=== PATIENT | male | born 1945 | race Caucasian/White ===

== ENCOUNTER 2016-09-24 10:45 | Day surgery (SDC) | payer OTHER, MEDICARE ==
[~2016-09-24] VITALS: Ht 175.3 cm; Wt 81.6 kg
[~2016-09-24 10:45] MED LIST: AMBIZINE25 MG PO; AMOX TR-K CLV1 EAC3 PO; ASPIR-LOW81 MG PO; FLORANEX CHE1 TABLET PO; FLUDROCORTISON0.1 M1 PO; LOPERAMIDE2 MG PO; NITROSTAT0.4 MG SL; NORCO 5/3251 TABLET PO; NOVOLOG PE100 UNITS/ SC; PHENERGAN25 MG/ML IM; PLAVIX75 MG PO; PROAMATINE5 MG PO; PROTONIX40 MG PO; TYLENOL REGULA325 MG PO; ZOLOFT25 MG PO
[2016-09-24 11:42] VITALS: BP 192/88
[2016-09-24 11:44] LABS: POINT-OF-CARE METER ID UU14174212
[2016-09-24 14:56] LABS: POINT-OF-CARE METER ID UU13113675
[2016-09-24 16:10] VITALS: BP 141/76
[2016-09-24 16:59] VITALS: BP 143/77
== END 2016-09-24 17:10 | disposition home or self-care (01) ==
LOC: SDC 10:45
PROVIDERS: Ophthalmology
DX: E11.3531 Type 2 diabetes mellitus with proliferative diabetic retinopathy with traction retinal detachment not involving the macula, right eye (principal); E11.22 Type 2 diabetes mellitus with diabetic chronic kidney disease; I25.10 Atherosclerotic heart disease of native coronary artery without angina pectoris; I13.0 Hypertensive heart and chronic kidney disease with heart failure and stage 1 through stage 4 chronic kidney disease, or unspecified chronic kidney disease; N18.3 Chronic kidney disease, stage 3 (moderate); I50.22 Chronic systolic (congestive) heart failure; Z95.1 Presence of aortocoronary bypass graft; I69.354 Hemiplegia and hemiparesis following cerebral infarction affecting left non-dominant side; K21.9 Gastro-esophageal reflux disease without esophagitis; Z79.84 Long term (current) use of oral hypoglycemic drugs; Z79.02 Long term (current) use of antithrombotics/antiplatelets; Z88.2 Allergy status to sulfonamides; I25.2 Old myocardial infarction; Z95.5 Presence of coronary angioplasty implant and graft; Z95.810 Presence of automatic (implantable) cardiac defibrillator
CPT/HCPCS: 82948; 84132; J0131; J0330; J0690; J1170; J2405; J3010; J3300

== ENCOUNTER 2017-02-19 14:32 | Inpatient (IN) | payer OTHER, MEDICARE ==
[~2017-02-19] VITALS: Ht 175.3 cm; Wt 85.1 kg
[2017-02-19] VITALS (7 sets, daily range): BP systolic 147–170; BP diastolic 73–86
[2017-02-19 14:53] LABS: BASOPHIL COUNT 0.1 K/uL (0-0.1); EOSINOPHIL (%) 1.1 % (0-5); EOSINOPHIL COUNT 0.1 K/uL (0-0.3); HEMATOCRIT 22.5 % (38.0-50.0); IMMATURE GRANULOCYTE (%) 1.1 % (0.0-0.7); IMMATURE GRANULOCYTE COUNT 0.1 K/uL; INSTRUMENT ABS NEUTROPHIL CT 8.1 K/uL; LYMPHOCYTE COUNT 1.4 K/uL (1.0-2.8); MCH 19.5 PG (29.0-34.0); MCHC 27.1 G/DL (30.0-36.0); MCV 71.9 FL (86-99); MEAN PLAT.VOLUME 10.8 uM^3 (9.0-12.4); MONOCYTE (%) 7.4 % (3-12); MONOCYTE COUNT 0.8 K/uL (0-0.8); NEUTROPHIL (%) 76.5 % (45-76); NEUTROPHIL COUNT 8.1 K/uL (1.8-6.4); PLATELET COUNT 298 K/uL (156-360); RBC DIS.WIDTH-CV 16.8 % (11.8-14.6); RBC DIS.WIDTH-SD 43.8 % (39-53); RED BLOOD COUNT 3.13 M/uL (4.00-5.50); WHITE BLOOD COUNT 10.6 K/uL (4.1-10.2)
[2017-02-19 14:59] LABS: AMYLASE 77 IU/L (1-118); CHLORIDE 111 mEq/L (99-109); POTASSIUM 5.7 mEq/L (3.7-5.4); SODIUM 140 mEq/L (136-147)
[2017-02-19 15:01] LABS: GLUCOSE 208 mg/dL (70-99)
[2017-02-19 15:02] LABS: ANION GAP 8 MEQ/L (2-14)
[2017-02-19 15:04] LABS: SERUM ETHYL ALCOHOL < 10 mg/dL
[2017-02-19 15:05] LABS: GFR ESTIMATE (CALCULATED) 30 mL/min/; UREA NITROGEN (BUN) 28 mg/dL (9-23)
[2017-02-19 15:08] LABS: LIPASE 30 U/L (1.0-51.0)
[2017-02-19 16:23] LABS: EOSINOPHIL (%) 0.4 % (0-5); EOSINOPHIL COUNT 0.1 K/uL (0-0.3); HEMATOCRIT 22.3 % (38.0-50.0); IMMATURE GRANULOCYTE (%) 0.9 % (0.0-0.7); IMMATURE GRANULOCYTE COUNT 0.1 K/uL; INSTRUMENT ABS NEUTROPHIL CT 11.5 K/uL; LYMPHOCYTE COUNT 1.1 K/uL (1.0-2.8); MCH 19.2 PG (29.0-34.0); MCHC 26.9 G/DL (30.0-36.0); MCV 71.5 FL (86-99); MEAN PLAT.VOLUME 10.5 uM^3 (9.0-12.4); MONOCYTE COUNT 0.8 K/uL (0-0.8); NEUTROPHIL (%) 84.4 % (45-76); NEUTROPHIL COUNT 11.5 K/uL (1.8-6.4); PLATELET COUNT 290 K/uL (156-360); RBC DIS.WIDTH-SD 43.8 % (39-53); RED BLOOD COUNT 3.12 M/uL (4.00-5.50); WHITE BLOOD COUNT 13.6 K/uL (4.1-10.2)
[2017-02-19 18:11] LABS: TROP-I INTERPRETATION NEGATIVE; TROPONIN-I 0.03 ng/mL (0.0-0.30)
[2017-02-19] MEDS ORDERED: ATORVASTATIN CA10 MG PO (18:26)
[2017-02-19] MEDS ORDERED: SERTRALINE HCL50 MG PO (18:26)
[2017-02-19] MEDS ORDERED: JANUVIA25 M1 PO (18:27)
[2017-02-19] MEDS ORDERED: METOPROLOL SUCC50 MG PO (18:27)
[2017-02-19] MEDS ORDERED: GLIPIZIDE XL10 MG PO (18:29)
[2017-02-19] MEDS ORDERED: FUROSEMIDE40 MG PO (18:30)
[2017-02-19] MEDS ORDERED: MESTINON60 MG PO (18:32)
[2017-02-19] MEDS ORDERED: ALDACTONE25 MG PO (18:33)
[2017-02-19] MEDS ORDERED: FERROCITE324 MG PO (18:34)
[2017-02-19 19:01] LABS: ADD MIUA? YES; BILIRUBIN NEGATIVE; BLOOD SMALL; COLOR YELLOW ((YELLOW)); GLUCOSE (STRIP) 150; KETONES NEGATIVE; LEUKOCYTES NEGATIVE; NITRITE NEGATIVE; PROTEIN (STRIP) 100; UROBILINOGEN 0.2 MG/DL (0.2-1.0)
[2017-02-19 19:09] LABS: AMPHETAMINE NEGATIVE (500 ng/mL); BACTERIA NONE SEEN /HPF; BARBITURATES NEGATIVE (200 ng/mL); BENZODIAZEPINES NEGATIVE (150 ng/mL); COCAINE NEGATIVE (150 ng/mL); EPITHELIAL CELLS NONE SEEN /HPF; GRANULAR CASTS 0-5 /LPF; HYALINE CASTS 0-5 /LPF; INTERNAL CONTROLS VALID? YES; METHADONE NEGATIVE (200 ng/mL); METHAMPHETAMINE NEGATIVE (500 ng/mL); MUCUS NONE SEEN /LPF; OPIATES (MORPHINE) PRESUMPTIVE POSITIVE (100 ng/mL); OXYCODONE NEGATIVE (100 ng/mL); PHENCYCLIDINE NEGATIVE (25 ng/mL); PROPOXYPHENE NEGATIVE (300 ng/mL); RED BLOOD CELLS 0-5 /HPF (0-5); THC CANNABINOIDS NEGATIVE (50 ng/mL); TRICYCLIC ANTIDEPRESSANTS NEGATIVE (300 ng/mL); UCUL ADDED? NO; WHITE BLOOD CELLS 0-5 /HPF (0-5)
[2017-02-19 19:27] LABS: ADD MEDTOX COMMENT Y
[2017-02-20] VITALS (8 sets, daily range): BP systolic 129–161; BP diastolic 59–77
[2017-02-20 05:54] LABS: HEMATOCRIT 26.1 % (38.0-50.0); MCH 21.3 PG (29.0-34.0); MCHC 28.4 G/DL (30.0-36.0); MEAN PLAT.VOLUME 10.9 uM^3 (9.0-12.4); PLATELET COUNT 259 K/uL (156-360); RBC DIS.WIDTH-CV 17.2 % (11.8-14.6); RBC DIS.WIDTH-SD 46.5 % (39-53); RED BLOOD COUNT 3.48 M/uL (4.00-5.50); WHITE BLOOD COUNT 13.8 K/uL (4.1-10.2)
[2017-02-20 06:17] LABS: ALKALINE PHOSPHATASE 80 IU/L (3-129); ANION GAP 8 MEQ/L (2-14); CHLORIDE 110 MEQ/L (99-109); GFR ESTIMATE (CALCULATED) 37 mL/min/; SAMPLE HEMOLYSIS CHECK 0; SAMPLE ICTERIC CHECK 0; SAMPLE LIPEMIA CHECK 0; SODIUM 142 MEQ/L (136-147); TOTAL BILIRUBIN 0.7 MG/DL (0.0-1.0); UREA NITROGEN (BUN) 27 mg/dL (9-23)
[2017-02-20 06:36] LABS: GLUCOSE 91 mg/dL (70-99)
[2017-02-20 07:04] LABS: POINT-OF-CARE METER ID UU14117124
[2017-02-20 11:49] LABS: POINT-OF-CARE METER ID UU14117124
[2017-02-20 15:28] LABS: FERRITIN 12 NG/ML (22-322)
[2017-02-20 16:23] LABS: POINT-OF-CARE METER ID UU14117124
[2017-02-20 21:09] LABS: HEMATOCRIT 25.4 % (38.0-50.0); MCV 75.4 FL (86-99)
[2017-02-20 22:35] LABS: POINT-OF-CARE METER ID UU14208753
[2017-02-21] VITALS (8 sets, daily range): BP systolic 145–178; BP diastolic 71–85
[2017-02-21 06:51] LABS: POINT-OF-CARE METER ID UU14208753
[2017-02-21 07:57] LABS: BASOPHIL COUNT 0.1 K/uL (0-0.1); EOSINOPHIL (%) 3.8 % (0-5); EOSINOPHIL COUNT 0.5 K/uL (0-0.3); HEMATOCRIT 25.3 % (38.0-50.0); IMMATURE GRANULOCYTE (%) 0.5 % (0.0-0.7); IMMATURE GRANULOCYTE COUNT 0.1 K/uL; INSTRUMENT ABS NEUTROPHIL CT 9.1 K/uL; LYMPHOCYTE COUNT 1.2 K/uL (1.0-2.8); MCH 21.7 PG (29.0-34.0); MCHC 28.9 G/DL (30.0-36.0); MCV 75.1 FL (86-99); MEAN PLAT.VOLUME 10.9 uM^3 (9.0-12.4); MONOCYTE (%) 9.8 % (3-12); MONOCYTE COUNT 1.2 K/uL (0-0.8); NEUTROPHIL (%) 75.8 % (45-76); NEUTROPHIL COUNT 9.1 K/uL (1.8-6.4); PLATELET COUNT 244 K/uL (156-360); RBC DIS.WIDTH-CV 17.9 % (11.8-14.6); RBC DIS.WIDTH-SD 48.5 % (39-53); RED BLOOD COUNT 3.37 M/uL (4.00-5.50)
[2017-02-21 08:14] LABS: ANION GAP 9 MEQ/L (2-14); CHLORIDE 109 MEQ/L (99-109); POTASSIUM 4.4 MEQ/L (3.7-5.4); SAMPLE HEMOLYSIS CHECK 0; SAMPLE ICTERIC CHECK 0; SAMPLE LIPEMIA CHECK 0; SODIUM 140 MEQ/L (136-147)
[2017-02-21 08:19] LABS: GFR ESTIMATE (CALCULATED) 40 mL/min/; GLUCOSE 110 mg/dL (70-99); UREA NITROGEN (BUN) 27 mg/dL (9-23)
[2017-02-21 12:00] LABS: POINT-OF-CARE METER ID UU14208753
[2017-02-21] MEDS ORDERED: TYLENOL REGULA325 MG PO (15:05)
[2017-02-21 16:42] LABS: POINT-OF-CARE METER ID UU14208753
[2017-02-21 21:50] LABS: POINT-OF-CARE METER ID UU14208753
[2017-02-22 04:05] VITALS: BP 136/69
[2017-02-22 07:42] LABS: POINT-OF-CARE METER ID UU14188577
[2017-02-22 08:39] VITALS: BP 162/78
[2017-02-22 11:20] LABS: POINT-OF-CARE METER ID UU14188577
[2017-02-22 11:40] VITALS: BP 170/81
[2017-02-22 13:28] LABS: INTERNAL CONTROL VALID? YES
[2017-02-22 13:54] LABS: C DIFF TOXIN NEGATIVE (NEGATIVE); PROBE CHECK PASS; SPECIMEN PROCESSING CONTROL PASS
[2017-02-22 16:05] VITALS: BP 167/82
[2017-02-22 16:29] LABS: POINT-OF-CARE METER ID UU14117124
== END 2017-02-22 18:31 | disposition home or self-care (01) | DRG 562 ==
LOC: TRA 14:32 → 3EAST 17:31 → EDOF 17:31 → ENRESERV 17:35 → 3EAST 19:58
PROVIDERS: Emergency Medicine; Student in an Organized Health Care Education/Training Program
PROC: 30233N1 Transfusion of Nonautologous Red Blood Cells into Peripheral Vein, Percutaneous Approach (ICD-10-PCS; principal; 2017-02-19)
DX: S42.002A Fracture of unspecified part of left clavicle, initial encounter for closed fracture (principal); E87.5 Hyperkalemia; D50.9 Iron deficiency anemia, unspecified; I50.23 Acute on chronic systolic (congestive) heart failure; I13.0 Hypertensive heart and chronic kidney disease with heart failure and stage 1 through stage 4 chronic kidney disease, or unspecified chronic kidney disease; N17.9 Acute kidney failure, unspecified; I25.10 Atherosclerotic heart disease of native coronary artery without angina pectoris; I95.89 Other hypotension; M25.512 Pain in left shoulder; S40.012A Contusion of left shoulder, initial encounter; E11.9 Type 2 diabetes mellitus without complications; F41.9 Anxiety disorder, unspecified; F32.9 Major depressive disorder, single episode, unspecified; E78.5 Hyperlipidemia, unspecified; W18.30XA Fall on same level, unspecified, initial encounter; E11.22 Type 2 diabetes mellitus with diabetic chronic kidney disease; N18.9 Chronic kidney disease, unspecified; D64.9 Anemia, unspecified; V03.10XA Pedestrian on foot injured in collision with car, pick-up truck or van in traffic accident, initial encounter; Z95.5 Presence of coronary angioplasty implant and graft; I69.354 Hemiplegia and hemiparesis following cerebral infarction affecting left non-dominant side; Z79.4 Long term (current) use of insulin
CPT/HCPCS: 70450; 71010; 71260; 72125; 72129; 72132; 73000; 73030; 73060; 73130; 73502; 74177; 80048; 80053; 81003; 82150; 82272; 82728; 82948; 83690; 84466; 84484; 84999; 85014; 85018; 85025; 85025 91; 85027; 86850; 86900; 86901; 86920; 87040; 87493; 93005; 94799; 97530 GP; 99281; 99285; G0480; J0360; J1815; J2405; J7030; J7050; P9016; Q0138